=== PATIENT | male | born 1995 | race Caucasian/White ===

== ENCOUNTER 2017-09-11 02:16 | Emergency (ER) | payer OTHER ==
[~2017-09-11] VITALS: Ht 177.8 cm; Wt 70.3 kg
[2017-09-11] MEDS ORDERED: diphenhydrAMINE HCL 50 MG/ML VIAL ONE (02:27)
[2017-09-11] MEDS ORDERED: methylPREDNISolone SOD SUCC 125 MG/2ML VIAL ONE (02:28)
[2017-09-11] MEDS ORDERED: FAMOTIDINE/PF INJ 20 MG/2 ML VIAL IV ONE ×2 (02:29→02:30)
--- NOTE | 2017-09-11 02:29 | NUR ---
PT AMBULATORY TO ER BED 10. 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 VSS/RESP EVEN UNLABORED/NAD NOTED/SKIN WARM AND DRY/DENIES N-V-D/AFEBRILE. MD AT BEDSIDE FOR EVAL.
[2017-09-11] MEDS ORDERED: IV NS 0.9% 1,000 ML BAG IV ONE (02:30)
[2017-09-11] MEDS ORDERED: diphenhydrAMINE HCL 50 MG/ML VIAL IV ONE (02:30)
[2017-09-11] MEDS ORDERED: methylPREDNISolone SOD SUCC 125 MG/2ML VIAL IV ONE (02:30)
--- NOTE | 2017-09-11 02:32 | NUR ---
20G IV TO L AC X 1 ATTEMPT USING ASEPTIC TECH. IV FLUSHES EASILY WITH NS, NO S/S INFILTRATION NOTED AT THIS TIME.
--- NOTE | 2017-09-11 02:39 | NUR ---
MEDICATED PT ORDERED
--- NOTE | 2017-09-11 04:10 | NUR ---
IV removed. Catheter intact and site benign. Pressure and 4x4 applied to site. No bleeding noted. Patient discharged with friend to home in stable condition. Written and verbal after care instructions given, patient instructed not to drive. Patient verbalizes understanding of instruction. Patient is awake and alert to self, day, and place. Patient ambulatory with a steady gait.
[2017-09-11 04:11] VITALS: BP 108/60
== END 2017-09-11 04:12 | disposition home or self-care (01) ==
LOC: ER 02:18
DX: T78.40XA Allergy, unspecified, initial encounter (principal)
CPT/HCPCS: A4606; J1200; J2930; J3490; J7030; Z7610